=== PATIENT | female | born 1945 | race Caucasian/White ===

== ENCOUNTER 2019-10-08 13:40 | Inpatient (IN) | payer MEDICARE, BC ==
[2019-10-08 15:15] VITALS: BP 160/97
[2019-10-08] MEDS ORDERED: Magnesium Hydroxide (MOM) 30 mL UDC PO PRN (15:17)
[2019-10-08] MEDS ORDERED: Maalox 30 mL Cup PO PRN (15:17)
[2019-10-08] MEDS ORDERED: Acetaminophen 500 MG TAB PO PRN (15:17)
[2019-10-09] MEDS: Multivitamin Tab PO SCH (09:45)
[2019-10-09] MEDS ORDERED: Acetaminophen 500 MG TAB PO PRN (15:06)
--- NOTE | 2019-10-09 16:26 | Consultation ---
DATE OF CONSULTATION: 10/08/2019 INTERNAL MEDICINE CONSULTATION CHIEF COMPLAINT: The patient was aggressive. HISTORY OF PRESENT ILLNESS: The patient is 73-year-old with hypertension, dementia, who was transferred here for aggressive behavior, agitation. The patient denies any chest pain, shortness of breath. No nausea, vomiting, abdominal pain or diarrhea. The patient does admit to bruising for the last few weeks. No nausea or vomiting, abdominal pain, diarrhea. PAST MEDICAL HISTORY: 1. Dementia. 2. Hypertension. 3. Hyperlipidemia. PAST SURGICAL HISTORY: None. MEDICATIONS: List reviewed. ALLERGIES: None. SOCIAL HISTORY: Tobacco, IV drugs, ETOH negative. PHYSICAL EXAMINATION: VITAL SIGNS: Temperature is 98.5, pulse 79, respirations 20, blood pressure is 171/88, satting 98% on room air. HEENT: Normocephalic, atraumatic head exam. NECK: Supple. CARDIOVASCULAR: Regular rate and rhythm. LUNGS: Decreased breath sounds. ABDOMEN: Soft, nontender. EXTREMITIES: No edema, cyanosis or clubbing. CN grossly intact ASSESSMENT: 1. Hypertension. 2. Dementia. 3. Hyperlipidemia. 4. Bruising. PLAN: The patient will have stat labs done including CBC, CMP, INR to make sure there is no underlying hematological trigger. JOB# [id number] [facility]
--- NOTE | 2019-10-09 21:25 | Psychiatric Evaluation ---
DATE OF SERVICE: 10/09/2019 IDENTIFYING INFORMATION: The patient is a 73-year-old female. CHIEF COMPLAINT: "My daughter and her boyfriend called the police." REASON FOR ADMISSION: The patient was admitted on a hold for danger to others. HISTORY OF PRESENT ILLNESS: The patient is now on hold for danger to others. Apparently, her daughter called the police, tell them that the patient was trying to shoot him. The patient will have multiple bruises to her body. She has not been sleeping well. She has been depressed. She has a house in somewhere in [place] that she believe her daughter wanted to conserve her, sell the house and take her money. She cannot predict her daughter and her boyfriend because of COVID-19. She asked them to be pay rent that they would not, daughter called the police many times at least twice before and every time the police came, nothing happened. They did not put on hold, but this time, they did because apparently the patient has a gun in a safe and she told them that she was planning to shoot them and she denies that she has any plan to harm anybody. She reports not been sleeping well. She reports that appetite is okay. No change in weight. Currently, weighs 153 pounds. She denies any auditory or visual hallucinations or paranoia. The patient reports she was on Pristiq. The patient reported onset of mental illness. The patient reported this started for the past few months since her daughter moved in with her with the boyfriend who apparently have some issues with the divorce and paying to ex-. Her boyfriend is a furnace mechanic helper, not paying rent, daughter is 35 years of age. PAST PSYCHIATRIC HISTORY: The patient reported that she has 2 prior hospitalizations 20 years ago after divorce. She has suicidal ideation dealing with divorce. She reports that she never tried to harm herself or suicidal ideations. She has been seen by a psychiatrist. She denies any mood swings or irritability. Denies any visual hallucination or paranoia. FAMILY AND SOCIAL HISTORY: The patient reports that she used to drink alcohol socially. She uses marijuana excessively in the past, but then she stopped and start using it 4-5 years ago. The patient denies past psychotic disorder. SOCIAL HISTORY: The patient is for a long time. She has one daughter, 35 years of age. She has another son that of alcoholism. She was at age 48 and that was in 2013. EDUCATIONAL HISTORY. She has high school education and social work school. 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 The patient reports she has a house that worth millions, and then she has a gun in the safe with jewelry and money and the police took the same. MENTAL STATUS EXAMINATION: The patient is appropriately dressed, not very groomed. She has bruises to her face and body and she said it because the police would not let her go to the bathroom to pee and they will not let her. So, there have been some resistance to bring her to the hospital. She reported that she has not been sleeping well. Appetite is okay. She denies any auditory or visual hallucination or paranoia. Denies any intent to harm anyone, but according to records, she has a gun and she threatened her daughter to shoot her. She is not acting psychotic. She seems to have average intelligence just by able to give information, fund of knowledge and knowledge of the president of [facility]. Concentration is fair, able to answer questions appropriately and spell forward and backward. Long-term is good significant for age and date of . Recent memory is good. She cannot remember events after coming here, what she ate for breakfast. Immediate memory is good. She cannot remember what happens multiples 3 out of 3 in 5 minutes. Insight about illness is fair. She knows she has a problem. Judgment is also fair, assuming she is sincere about what she is telling me. IMPRESSION: Major depression, recurrent, severe with no psychosis. Marijuana abuse. MEDICAL DIAGNOSIS: As per medical doctor. MEDICAL HISTORY: No known drug allergy, multiple bruises to her body. ASSETS: She wants to get help. She is intelligent. She is financially stable. Negative poor coping skills, problem with her daughter. PLAN: The patient will be continued with her medication. We do not have Pristiq. We will keep her on Cymbalta. We will do group therapy, milieu therapy, and individual therapy. ESTIMATED LENGTH OF STAY: 3-7 days. DISCHARGE CRITERIA: Decreasing depression, feeling better after discharge, outpatient treatment. JOB# [id number] [facility]
[2019-10-09 23:01] LABS: CHOLESTEROL 352 mg/dL (<200); LDL CHOLESTEROL 262 mg/dL (0-129); TRIGLYCERIDES 157 mg/dL (30-150)
[2019-10-10 06:10] LABS: A1C 5.6 % (4.8-5.6)
[2019-10-10] MEDS: Multivitamin Tab PO SCH (08:55)
[2019-10-10 12:56] LABS: PROTHROMBIN TIME (TEST) 9.9 SECS (9.5-12.5)
[2019-10-10 12:57] LABS: POTASSIUM SERUM 3.7 mmol/L (3.5-5.1)
[2019-10-10 12:58] LABS: BILIRUBIN,TOTAL 1.1 mg/dL (0.0-1.0); CALCIUM SERUM 9.7 mg/dL (8.4-10.2); CREATININE - SERUM 0.95 mg/dL (0.70-1.30); TOTAL PROTEIN,SERUM 7.7 g/dL (6.4-8.3)
--- NOTE | 2019-10-10 14:01 | Internal Medicine Prog Note ---
Internal Medicine Subjective - Subjective Service Date: 10/10/19 Patient seen and examined:: without staff Patient is:: awake Patient Complaints of:: congestion Per staff patient has:: no adverse event, no episodes of fall Internal Medicine Objective - Results Result Diagrams: 10/10/19 10:00 Recent Labs: Laboratory Last Values PT 9.9 SECS (9.5-12.5) 10/10/19 10:00 Sodium 138 mmol/L (136-145) 10/10/19 10:00 Potassium 3.7 mmol/L (3.5-5.1) 10/10/19 10:00 Chloride 101 mmol/L (98-107) 10/10/19 10:00 Carbon Dioxide 26 mmol/L (23-29) 10/10/19 10:00 Anion Gap 15 (5-15) 10/10/19 10:00 BUN 13 mg/dL (8-21) 10/10/19 10:00 Creatinine 0.95 mg/dL (0.70-1.30) 10/10/19 10:00 Glucose 123 mg/dL (70-99) H 10/10/19 10:00 Hemoglobin A1c 5.6 % (4.8-5.6) 10/09/19 07:38 Calcium 9.7 mg/dL (8.4-10.2) 10/10/19 10:00 Total Bilirubin 1.1 mg/dL (0.0-1.0) H 10/10/19 10:00 AST 24 U/L (10-37) 10/10/19 10:00 ALT 25 U/L (12-78) 10/10/19 10:00 Alkaline Phosphatase 80 U/L (46-116) 10/10/19 10:00 Total Protein 7.7 g/dL (6.4-8.3) 10/10/19 10:00 Albumin 4.0 g/dL (3.4-5.0) 10/10/19 10:00 Triglycerides 157 mg/dL (30-150) H 10/09/19 07:38 Cholesterol 352 mg/dL (<200) H 10/09/19 07:38 LDL Cholesterol 262 mg/dL (0-129) H 10/09/19 07:38 HDL Cholesterol 69 mg/dL (>55) 10/09/19 07:38 Coronavirus (PCR) NOT DETECTED (NOT DETECTD) 10/08/19 15:51 - Physical Exam Vitals and I&O: Vital Signs Temp 97.6 F 10/10/19 05:19 Pulse 62 10/10/19 05:19 Resp 18 10/10/19 05:19 BP 156/77 10/10/19 05:19 Pulse Ox 99 10/10/19 05:19 Intake & Output 10/09/19 10/10/19 10/10/19 18:59 06:59 18:59 Intake Total 1600 240 Balance 1600 240 Intake: Oral 1600 240 Other: # Voids 4 3 # Bowel Movements 1 0 Active Medications: Current Medications Acetaminophen (Tylenol) 650 mg PO Q4H PRN PRN Reason: Pain (Mild 1-3) Stop: 12/07/19 15:16 Acetaminophen (Tylenol Extra Strength) 1,000 mg PO Q6H PRN PRN Reason: Pain (Moderate 4-6) Stop: 12/08/19 15:05 Last Admin: 10/09/19 17:53 Dose: 1,000 mg Al Hydrox/Mg Hydrox/Simethicone (Maalox) 30 ml PO Q4HR PRN PRN Reason: GI DISTRESS Stop: 12/07/19 15:16 Last Admin: 10/10/19 07:42 Dose: 30 ml Aripiprazole (Abilify) 5 mg PO DAILY [facility]; Protocol Stop: 12/09/19 08:59 Last Admin: 10/10/19 08:55 Dose: 5 mg Ibuprofen (Motrin) 400 mg PO Q4H PRN PRN Reason: Pain (Severe 7-10) Stop: 12/07/19 15:16 Last Admin: 10/09/19 20:48 Dose: 400 mg Lorazepam (Ativan) 0.5 mg PO Q4HR PRN; Protocol PRN Reason: Anxiety Stop: 11/07/19 15:16 Last Admin: 10/10/19 09:25 Dose: 0.5 mg Magnesium Hydroxide (Milk Of Magnesia) 30 ml PO HS PRN PRN Reason: Constipation Multivitamins/Vitamin C (Theragran) 1 tab PO DAILY [facility] Stop: 12/08/19 08:59 Last Admin: 10/10/19 08:55 Dose: 1 tab Venlafaxine HCl (Effexor) 75 mg PO BID [facility]; Protocol Stop: 12/08/19 16:59 Last Admin: 10/10/19 08:54 Dose: 75 mg Zolpidem Tartrate (Ambien) 5 mg PO HS PRN PRN Reason: Insomnia Stop: 12/07/19 15:16 Last Admin: 10/09/19 20:48 Dose: 5 mg General: weak HEENT: NC/AT, PERRLA Neck: Supple Lungs: CTAB Cardiovascular: RRR, Normal S1, Normal S2 Abdomen: soft Extremities: clear Internal Medicine Assmt/Plan - Assessment Assessment: 1. Elevated BP 2. HLD - Plan Plan: monitor BP for now continue supportive care
[2019-10-10 14:27] LABS: HEMATOCRIT 40.4 % (36-48); HEMOGLOBIN 13.8 g/dL (12.0-16.0); MEAN CORPUSCULAR HEMOGLOBIN 33 pg (27-31); MEAN CORPUSCULAR VOLUME 95 fL (79.0-98.0); RED BLOOD COUNT 4.26 MIL/uL (4.2-6.2); WHITE BLOOD COUNT 6.4 K/uL (4.8-10.8)
[2019-10-10 14:28] LABS: % NEUTROPHILS 70.5 % (40-70); BASOPHILS % (AUTO) 0.4 % (0.0-2.0); EOSINOPHILS % (AUTO) 0.3 % (0-4); LYMPHOCYTES # (AUTO) 1.4 K/uL (1.0-5.5); LYMPHOCYTES % (AUTO) 21.2 % (20.5-51.5); MEAN CORPUSCULAR HGB CONC 34 % (32-36); MONOCYTES # (AUTO) 0.5 K/uL (0.0-1.0); MONOCYTES % (AUTO) 7.6 % (1.7-9.3); NEUTROPHILS # (AUTO) 4.5 K/uL (1.8-7.7); PLATELET COUNT 351 K/uL (130-430); RED CELL DISTRIBUTION WIDTH 13.3 % (9.0-15.0)
--- NOTE | 2019-10-10 21:04 | Progress Notes ---
DATE: 10/10/2019 SUBJECTIVE: Chart reviewed and the patient interviewed. Also discussed the patient's condition with the staff and reviewed records and labs. "The crystallographer did that to me." The patient is talking about how the police caused bruises for her. The patient also is extremely angry and is minimizing all her symptoms and paranoid about her daughter saying that her daughter wants her to be under conservatorship, so she can get her house and boyfriend. The patient also said that her daughter has been stealing her belongings. The patient is depressed, but not aggressive and not having any behavioral problems, but she is having bruises all over her body and on head and face. She is alert and she is oriented. She also has severe mood swings and she also seems to be slightly paranoid. ASSESSMENT: The patient is severely depressed and also she is in need of redirections at times. TREATMENT PLAN: We will continue monitoring her behavior closely. Also, continue Effexor 75 mg twice a day. Also, we will add Abilify in a dose of 5 mg every day and continue to follow up closely. JOB# [id number]
[2019-10-11] MEDS: Multivitamin Tab PO SCH (08:34)
--- NOTE | 2019-10-12 15:14 | Discharge Summary ---
DATE OF DISCHARGE: 10/11/2019 AGE: 73. SEX: Female. PHYSICIAN: Dr. Henderson. FINAL DIAGNOSIS AND PRIMARY DIAGNOSIS: Major depression, severe, recurrent, without psychotic features. SECONDARY DIAGNOSIS: Cannabis use disorder. REASON FOR HOSPITALIZATION: The patient was admitted to the hospital on a 5150 hold for dangers to self after the patient's daughter called the police telling him that the patient was trying to shoot them referring to the daughter and her boyfriend. The patient also was not sleeping well. Also, the patient thinks that her daughter wants to conserve her and sell the house and to take her money with her boyfriend. HOSPITAL COURSE: The patient was calm and cooperative. She was isolative. She seems to be in a depressed mood. The patient continued to think that her daughter wants to take her money after selling the house. The patient denied any intention to harm herself or anybody else. She also was started on Effexor 75 mg twice a day and Abilify was added in a dose of 5 mg every day. The patient's affect was brighter. The patient was not suicidal or homicidal, and she was cooperative with her treatment. The patient said that she would stay with a friend and the friend confirmed that she can stay with her until she can return to her home when her daughter is out of bed. The patient denies any intention to harm herself or others and also any side effects of Abilify or Effexor. PHYSICAL EXAMINATION: The patient was basically within normal and the patient had no major medical problems while in the hospital. AFTER DISCHARGE PLANS: Outpatient treatment and followup and the patient was given appointment to see me in my office if she choose to do so. DISCHARGE ACTIVITY: No restrictions. DISCHARGE DIET: Regular. DISCHARGE PSYCHOTROPIC MEDICATIONS: 1. Effexor XR 75 mg twice a day. 2. Abilify 5 mg every day. EXPECTED OUTCOME AFTER DISCHARGE: Fair, if the patient continues to take her psychotropic medications and also followup with discharge plans. [facility]# [id number]
[2019-10-13 14:37] LABS: INR 0.97 (0.5-1.4)
== END 2019-10-11 13:27 | disposition home or self-care (01) | DRG 885 ==
LOC: GERO 14:18
PROVIDERS: ADMIT Psychiatry & Neurology Psychiatry; ATTEND Psychiatry & Neurology Psychiatry
DX: F33.2 Major depressive disorder, recurrent severe without psychotic features (principal); I10 Essential (primary) hypertension; F03.90 Unspecified dementia, unspecified severity, without behavioral disturbance, psychotic disturbance, mood disturbance, and anxiety; E78.5 Hyperlipidemia, unspecified
CPT/HCPCS: 36415-UA; 80053-TC; 80061-TC; 83036-90; 85025-TC; 85610-TC; 90899; G0410; U0003-CS; Z7610